=== PATIENT | male | born 1975 | race Caucasian/White ===

== ENCOUNTER → 2018-11-27 | Outpatient (CLI) | payer OTHER ==
--- NOTE | 2018-11-27 15:10 | KCIC ---
MR of the right elbow HISTORY: Right elbow after trauma one week ago. TECHNIQUE: Routine multiplanar sequences are obtained. FINDINGS: There is moderate motion degradation. The biceps and brachialis tendons are intact. Triceps tendon is intact. Common flexor tendon intact. No evidence of ulnar collateral ligament tear. Common extensor tendon and lateral collateral ligament complex is intact. Fracture of the radial head. This has a comminuted appearance with a transverse component at the base of the head as well as a coronal component which extends through the articular surface. There is very mild impaction but no gross displacement at the fracture site. Subchondral marrow edema/contusion at the posterior capitellum. Small joint effusion/hemarthrosis. Mild edema/contusion in the soft tissues, particularly around the proximal radius. IMPRESSION: 1. Comminuted intra-articular fracture of the radial head. Mild impaction but no gross displacement. 2. Mild subchondral marrow contusion at the posterior capitellum. Electronically signed by: Isiah Cordero MD (11/27/2018 3:07 PM) [facility]
== END | disposition home or self-care (01) ==
LOC: KCIC MRI 12:18
PROVIDERS: ATTEND Family Medicine
DX: S52.121A Displaced fracture of head of right radius, initial encounter for closed fracture (principal); S50.01XA Contusion of right elbow, initial encounter; R93.7 Abnormal findings on diagnostic imaging of other parts of musculoskeletal system; X58.XXXA Exposure to other specified factors, initial encounter; Y93.89 Activity, other specified; Y92.89 Other specified places as the place of occurrence of the external cause; Y99.8 Other external cause status
CPT/HCPCS: 73221